=== PATIENT | female | born 1995 | race Caucasian/White ===

== ENCOUNTER 2019-09-22 14:26 | Emergency (ER) | payer BC ==
[~2019-09-22] VITALS: Ht 154.9 cm; Wt 95.0 kg
[2019-09-22 15:22] LABS: BILIRUBIN,URINE MODERATE (NEG); CLARITY,URINE CLOUDY; COLOR,URINE AMBER; NITRITE,URINE NEGATIVE (NEG); PROTEIN,URINE NEGATIVE (NEG-TRACE)
[2019-09-22 15:27] LABS: RBC,URINE 0 /HPF (0-2)
[2019-09-22 15:28] LABS: BACTERIA,URINE MOD /HPF (0-FEW); SQUAMOUS EPITHELIAL CELL,UR MANY /LPF; WBC,URINE 20-40 /HPF (0-4)
--- NOTE | 2019-09-22 16:40 | PHYS DOC ---
Past Medical History Past Medical History: No Pertinent History Past Surgical History: No Surgical History Smoking Status: Never Smoker Alcohol Use: None General Adult EDM: Chief Complaint: PAIN ON URINATION HPI: HPI: Patient is a 24 year old female who presents with dysuria. Patient states that she urinated earlier and had a burning sensation. She states she does not typically have anything like that and she has never had anything like that before. She states she is only ever been with one yarelis but they are having relationship issues. She believes that she has some kind of blisters or rash in her genital area. She denies any abdominal pain, nausea, vomiting, flank pain. Review of Systems: Review of Systems: General: Denies fever, chills, sweats, fatigue Eyes: Denies drainage, blurred vision, eye redness HENT: Denies rhinorrhea, sore throat, earache Respiratory: Denies cough, shortness of breath, wheezing Cardiac: Denies edema, palpitations, chest pain GI: Denies abdominal pain, Nausea, vomiting MSK: Denies back pain, neck pain Skin: Denies rash, jaundice Neuro: Denies headache, dizziness Psychiatric: Denies SI/HI Heart Score: Risk Factors: Risk Factors: DM, Current or recent (<one month) smoker, HTN, HLP, family history of CAD, obesity. Risk Scores: Score 0 - 3: 2.5% MACE over next 6 weeks - Discharge Home Score 4 - 6: 20.3% MACE over next 6 weeks - Admit for Clinical Observation Score 7 - 10: 72.7% MACE over next 6 weeks - Early Invasive Strategies Allergies: Allergies: Allergies Coded Allergies Type Severity Reaction Last Updated Verified acetaminophen Adverse Reaction Intermediate Nausea 09/22/19 Yes hydrocodone Adverse Reaction Intermediate Nausea 09/22/19 Yes Physical Exam: PE: General: Awake, alert, NAD. Well Nourished, well hydrated. Cooperative HEENT: Atraumatic, EOMI, PERRL, airway patent, moist oral mucosa Neck: Supple, trachea midline Respiratory: CTA bilaterally, normal effort, no wheezing/crackles CV: RRR, no murmur, cap refill <2 GI: Soft, nondistended, nontender, no masses : mild erythema of the labia minora, no ulcerations, small amount of white cervical discharge, cervix appears normal, no CMT MSK: No obvious deformities Skin: Warm, dry, intact Neuro: A&O x3, speech NL, sensory and motor grossly intact, no focal deficits Psych: Normal affect, normal mood, not suicidal or homicidal Current Patient Data: Labs: Laboratory Tests Test 09/22/19 14:28 09/22/19 15:19 Urine Collection Type Unknown Urine Color [place] Urine Clarity Cloudy Urine pH 6.0 (<5.0-8.0) Urine Specific [place] >=1.030 (1.000-1.030) Urine Protein Negative mg/dL (NEG-TRACE) Urine Glucose (UA) Negative mg/dL (NEG) Urine Ketones (Stick) 15 mg/dL (NEG) Urine Blood Negative (NEG) Urine Nitrite Negative (NEG) Urine Bilirubin Moderate (NEG) Urine Urobilinogen Dipstick 1.0 mg/dL (0.2 mg/dL) Urine Leukocyte Esterase Moderate (NEG) Urine RBC 0 /HPF (0-2) Urine WBC 20-40 /HPF (0-4) Urine Squamous Epithelial Cells Many /LPF Urine Bacteria Mod /HPF (0-FEW) Urine Mucus Marked /LPF POC Urine HCG, Qualitative Hcg negative (Negative) Vital Signs: Vital Signs Date Time Temp Pulse Resp B/P (MAP) Pulse Ox O2 Delivery O2 Flow Rate FiO2 09/22/19 14:58 98.5 94 18 100 Room Air 98.5 EKG: EKG: [] Radiology/Procedures: Radiology/Procedures: [] Course & Med Decision Making: Course & Med Decision Making Pertinent Labs and Imaging studies reviewed. (See chart for details) Patient is a 24-year-old female who presents to the emergency room complaining of dysuria and lesions on her perineum. On exam she does have a couple of small purple lesions that do not appear to be warts, herpes, infectious of any kind. These are not painful on exam and do not contain any fluid. Exam shows a small amount of discharge. Wet mount shows white blood cells but is negative for trichomonas or yeast. Gonorrhea and Chlamydia test was sent. She was treated empirically. She will also be treated for UTI. Patient's test results and vitals while in the ED were fully reviewed and discussed with the patient. Patient is stable and at this time does not need admission to the hospital. We have discussed strict return precautions and the importance of following up with their Primary Care Physician. Patient stated understanding and was given an opportunity to ask any questions. Patient is in agreement with plan. Dragon Disclaimer: Dragon Disclaimer: This electronic medical record was generated, in whole or in part, using a voice recognition dictation system. Departure Departure Impression: Primary Impression: Urethritis Disposition: 01 HOME, SELF-CARE Condition: STABLE Referrals: GURMEET VARGAS (PCP) Patient Instructions: Cervicitis, Urethritis, Adult Scripts Cephalexin (KEFLEX) 500 Mg Capsule 1 CAP PO Q12HR, #14 CAP Prov: THERESA QUEEN MD 09/22/19 Justicifation of Admission Dx: Justifications for Admission: Justification of Admission Dx: No THERESA QUEEN MD Sep 22, 2019 16:40
[2019-09-22] MEDS ORDERED: CEPH-264 PO (17:13)
[2019-09-22] MEDS ORDERED: AZITHROMYCIN 250 MG TABLET. PO ONE (17:15)
[2019-09-22] MEDS ORDERED: cefTRIAXone IM 250 MG VIAL IM ONE (17:15)
[2019-09-22] MEDS ORDERED: ONDANSETRON ODT 4 MG TAB.RAPDIS. PO ONE (17:15)
[2019-09-22 17:33] VITALS: BP 132/69
[2019-09-23 23:09] LABS: GC PROBE Negative (Negative)
== END 2019-09-22 17:47 | disposition home or self-care (01) ==
LOC: ER 14:26
DX: N34.2 Other urethritis (principal); R30.0 Dysuria; R20.8 Other disturbances of skin sensation; Z88.5 Allergy status to narcotic agent; Z88.6 Allergy status to analgesic agent
CPT/HCPCS: 81001; 81025; 87491; 87591; 96372; 99284; J0696; Q0111